=== PATIENT | female | born 1985 | race Caucasian/White ===

== ENCOUNTER 2017-05-10 10:48 | Emergency (ER) | payer SELFPAY ==
[2017-05-10 10:53] VITALS: BP 151/87; BMI 31.7
[2017-05-10] MEDS ORDERED: NS 1000 ML 1,000 ML IV ONE (12:01)
[2017-05-10] MEDS ORDERED: ZOFRAN INJ 4 MG VIAL IVP ONE (12:01)
--- NOTE | 2017-05-10 12:01 | DR.GENAD ---
HPI - PCP Primary Care Physician: NFD - Complaint/Symptoms Chief Complaint Doctors Comments: I agree with statement Chief Complaint:: PATIENT STATED THAT YESTERDAY SHE STARTED HAVING A TROBBING HEADACHE, FEELS FOGGY AND FAINT, SWEATY, FEVER. - Source History Provided: Patient - Mode of Arrival Mode of Arrival: Ambulatory - Timing Onset of Chief Complaint: 05/09/17 PMH - PMH Past Medical History: No Past Surgical History: Yes Surgical History: [employer]IM[employer] Surgery - Family History History of Family Medical Conditions: No - Social History Does patient currently use any type of tobacco product: Yes Have you used tobacco products in the last 12 months: Yes Type of Tobacco Use: Cigarettes Does any household member use tobacco: No Alcohol Use: None Do you use any recreational Drugs:: No Lives With: Family Lives Where: Home - infectious screening In the last 2 months have you had wt loss of >10#?: NO Have you had fever, night sweats or hemotysis?: No Have you traveled outside the country in the last 6 months?: No Isolation: Standard ROS - Review of Systems Constitutional: negative: Diaphoresis Eyes: No Symptoms Reported ENTM: No Symptoms Reported Respiratoy: No Symptoms Reported Cardiovascular: No Symptoms Reported Gastrointestinal/Abdominal: No Symptoms Reported Genitourinary: No Symptoms Reported Neurological: No Symptoms Reported Musculoskeletal: No Symptoms Reported Integumentary: No Symptoms Reported Hematologic/Lymphatic: No Symptoms Reported Endocrine: No Symptoms Reported Psychiatric: No Symptoms Reported All Other Systems: Reviewed and Negative PE - Vital Signs Vitals: Temperature 99.9 F Pulse Rate 119 Respiratory Rate 20 Blood Pressure 151/87 O2 Sat by Pulse Oximetry 100 - General Limitations: No Limitations General Appearance: Alert, In No Apparent Distress - Head Head Exam: Normal Inspection, Atraumatic - Eyes Eye exam: Normal Appearance, PERRL, EOMI - ENT ENT Exam: Normal Exam External Ear Exam: Normal External Inspection TM/Canal Exam: Bilateral Normal Nose Exam: Normal Nose Exam Mouth Exam: Normal Inspection Throat Exam: Normal Inspection - Neck Neck Exam: Normal Inspection - Chest Chest Inspection: Normal Inspection - Respiratory Respiratory Exam: Normal Lung Sounds Bilat Respiratory Exam: Bilateral Clear to Auscultation - Cardiovascular Cardiovascular Exam: Regular Rate, Normal Rhythm - Abdominal Exam Abdominal Exam: Normal Inspection Abdominal Tenderness: negative: RUQ, RLQ, LUQ, LLQ, Epigastrium, Suprapubic, Diffuse, Mild, Moderate, Severe, Other - Extremities Extremities Exam: Normal Inspection, Full ROM - Back Back Exam: Normal Inspection, Full ROM - Neurologic Neurological Exam: Alert, Oriented X3, CN II-XII Intact - Psychiatric Psychiatric Exam: Normal Affect - Skin Skin Exam: Warm, Dry, Intact Course - Reevaluation 1st: Improved ROR - Labs Reviewed Laboratory Results Reviewed?: Yes (Urine: Bld 4+,Nitrite+,Leukocyte est 3+) Result Diagrams: 05/10/17 12:00 05/10/17 12:00 Laboratory: WBC 12.7 X10^3/uL (3.6-10.0) H 05/10/17 12:00 RBC 4.20 X10^6/uL (3.5-5.4) 05/10/17 12:00 Hgb 12.7 g/dL (12.0-16.0) 05/10/17 12:00 Hct 37.2 % (36.0-47.0) 05/10/17 12:00 MCV 88.5 fL (80.0-100.0) 05/10/17 12:00 MCH 30.3 pg (27.0-34.0) 05/10/17 12:00 MCHC 34.3 g/dL (33.0-35.0) 05/10/17 12:00 RDW 13.4 % (11.6-16.5) 05/10/17 12:00 Plt Count 204 X10^3/uL (150.0-450.0) 05/10/17 12:00 MPV 7.4 fL (7.4-11.0) 05/10/17 12:00 Neut % 88.2 % (42.0-75.0) H 05/10/17 12:00 Lymph % 2.3 % (21.0-51.0) L 05/10/17 12:00 Ellis % 9.0 % (0.0-13.0) 05/10/17 12:00 Eos % 0.2 % (0.9-2.9) L 05/10/17 12:00 Baso % 0.3 % (0.2-1.0) 05/10/17 12:00 Neut # 11.2 x10^3/uL (2.2-4.8) H 05/10/17 12:00 Lymph # 0.3 X10^3/uL (1.3-2.9) L 05/10/17 12:00 Ellis # 1.1 x10^3/uL (0.3-0.8) H 05/10/17 12:00 Eos # 0.0 x10^3/uL (0.0-0.2) 05/10/17 12:00 Baso # 0.0 X10^3/uL (0.0-0.1) 05/10/17 12:00 Absolute Nucleated RBC 0.0 /100WBC 05/10/17 12:00 Sodium 137 mmol/L (136-145) 05/10/17 12:00 Corrected Sodium 138 mmol/L (136-145) 05/10/17 12:00 Potassium 3.7 mmol/L (3.5-5.1) 05/10/17 12:00 Chloride 104 mmol/L (98-107) 05/10/17 12:00 Carbon Dioxide 23.1 mmol/L (21-32) 05/10/17 12:00 BUN 8 mg/dL (7-18) 05/10/17 12:00 Creatinine 1.11 mg/dL (0.55-1.02) H 05/10/17 12:00 Est GFR (MDRD) Af Amer > 60 (>60) 05/10/17 12:00 Est GFR (MDRD) Non-Af > 60 (>60) 05/10/17 12:00 Glucose 127 mg/dL (65-99) H 05/10/17 12:00 Calcium 8.8 mg/dL (8.5-10.1) 05/10/17 12:00 Specimen Type Clean catch urine 05/10/17 12:23 Urine Color Yellow (YELLOW) 05/10/17 12:23 Urine Appearance Cloudy (CLEAR) 05/10/17 12:23 Urine pH 6.0 (5.0 - 8.0) 05/10/17 12:23 Ur Specific [place] 1.015 (1.000-1.030) 05/10/17 12:23 Urine Protein 4+ (NEGATIVE) 05/10/17 12:23 Urine Glucose (UA) Negative (NEGATIVE) 05/10/17 12:23 Urine Ketones Negative (NEGATIVE) 05/10/17 12:23 Urine Occult Blood 4+ (NEGATIVE) 05/10/17 12:23 Urine Nitrite Positive (NEGATIVE) 05/10/17 12:23 Urine Bilirubin Negative (NEGATIVE) 05/10/17 12:23 Urine Urobilinogen Normal (NORMAL) 05/10/17 12:23 Ur Leukocyte Esterase 3+ (NEGATIVE) 05/10/17 12:23 Streptococcus Screen Negative (NEGATIVE) 05/10/17 12:10 - Diagnosis Discharge Problem: Influenza-like illness UTI (urinary tract infection) Qualifiers: Urinary tract infection type: acute cystitis Hematuria presence: with hematuria Qualified Code(s): N30.01 - Acute cystitis with hematuria - Discharge Plan Condition: Stable - Follow ups/Referrals Follow ups/Referrals: NFD,None [Primary Care Provider] - 3 days - Instructions
[2017-05-10] MEDS ORDERED: ZOFRAN INJ 4 MG VIAL ONE (12:03)
[2017-05-10] MEDS ORDERED: NS 1000 ML 1,000 ML ONE (12:03)
[2017-05-10] MEDS ORDERED: TORADOL 30 MG VIAL IVP ONE (12:03)
[2017-05-10] MEDS ORDERED: TORADOL 30 MG VIAL ONE (12:04)
[2017-05-10 12:13] LABS: BASOPHILS % (AUTO) 0.3 % (0.2-1.0); EOSINOPHILS % (AUTO) 0.2 % (0.9-2.9); HEMATOCRIT 37.2 % (36.0-47.0); HEMOGLOBIN 12.7 g/dL (12.0-16.0); LYMPHOCYTES # (AUTO) 0.3 X10^3/uL (1.3-2.9); LYMPHOCYTES % (AUTO) 2.3 % (21.0-51.0); MEAN CORPUSCULAR HEMOGLOBIN 30.3 pg (27.0-34.0); MEAN CORPUSCULAR HGB CONC 34.3 g/dL (33.0-35.0); MEAN CORPUSCULAR VOLUME 88.5 fL (80.0-100.0); MEAN PLATELET VOLUME 7.4 fL (7.4-11.0); MONOCYTES # (AUTO) 1.1 x10^3/uL (0.3-0.8); NEUTROPHILS # (AUTO) 11.2 x10^3/uL (2.2-4.8); NEUTROPHILS % (AUTO) 88.2 % (42.0-75.0); PLATELET COUNT 204 X10^3/uL (150.0-450.0); RED CELL DISTRIBUTION WIDTH 13.4 % (11.6-16.5); WHITE BLOOD COUNT 12.7 X10^3/uL (3.6-10.0)
[2017-05-10 12:21] LABS: BLOOD UREA NITROGEN 8 mg/dL (7-18); CALCIUM 8.8 mg/dL (8.5-10.1); CARBON DIOXIDE 23.1 mmol/L (21-32); CHLORIDE 104 mmol/L (98-107); COR NA(FOR HYPERGLY) 138 mmol/L (136-145); CREATININE 1.11 mg/dL (0.55-1.02); SODIUM 137 mmol/L (136-145); eGFR BLACK RACES > 60 (>60); eGFR NON BLACK RACES > 60 (>60)
[2017-05-10 12:58] LABS: BILIRUBIN,URINE NEGATIVE (NEGATIVE); BLOOD/HEMOGLOBIN,URINE 4+ (NEGATIVE); GLUCOSE, URINE NEGATIVE (NEGATIVE); KETONES,URINE NEGATIVE (NEGATIVE); LEUKOCYTE ESTERASE ,URINE 3+ (NEGATIVE); NITRITES,URINE POSITIVE (NEGATIVE); PROTEIN,URINE 4+ (NEGATIVE); UROBILINOGEN,URINE NORMAL (NORMAL)
[2017-05-10 13:00] LABS: APPEARANCE,URINE CLOUDY (CLEAR); COLOR,URINE YELLOW (YELLOW)
[2017-05-10 13:23] LABS: BACTERIA,URINE 4+ /HPF (NEGATIVE); SQUAMOUS EPITHELIAL CELL,UR MANY /HPF (NEGATIVE)
[2017-05-10 13:24] LABS: AMORPHOUS SEDIMENT,UR TRACE /HPF (NEGATIVE); HYALINE CASTS, URINE RARE /LPF (NEGATIVE)
== END 2017-05-10 13:24 | disposition home or self-care (01) ==
LOC: ER 11:23
DX: J11.1 Influenza due to unidentified influenza virus with other respiratory manifestations (principal); N30.01 Acute cystitis with hematuria; B96.29 Other Escherichia coli [E. coli] as the cause of diseases classified elsewhere
CPT/HCPCS: 36415; 80048; 81001; 85025; 87070; 87086; 87088; 87186; 87502; 87503; 87880; 96365; 96374; 96375; 99283; A4222; J1885; J2405